=== PATIENT | female | born 1965 | race Caucasian/White ===

== ENCOUNTER → 2024-05-04 07:37 | Outpatient (CLI) | payer OTHER, SELFPAY ==
--- NOTE | 2024-05-04 07:41 | DI.US.S_ITS ---
PROCEDURE: US PERIPH VENOUS UP EXTREM FELIPE INDICATIONS: LOCALIZED SWELLING LOWER EXTREMITIES BILATERAL TECHNIQUE: Real-time imaging, as well as color and pulse Doppler interrogation, was performed of both upper extremity deep veins from the inferior neck to the antecubital fossa. COMPARISON: None. FINDINGS: Right: The internal jugular veins, visualized portions of the subclavian veins, axillary veins, and brachial veins are free of intraluminal thrombus. Where physically possible, the veins are normally compressible. Color and pulse Doppler demonstrate normal intraluminal flow, with expected phasicity and pulsatility. Additional scanning of the cephalic and basilic veins of the superficial system demonstrates normal compressibility, without thrombus. Left: The internal jugular veins, visualized portions of the subclavian veins, axillary veins, and brachial veins are free of intraluminal thrombus. Where physically possible, the veins are normally compressible. Color and pulse Doppler demonstrate normal intraluminal flow, with expected phasicity and pulsatility. Additional scanning of the cephalic and basilic veins of the superficial system demonstrates normal compressibility, without thrombus. Note is made of incompetent venous valves within both the right greater saphenous vein and the left greater saphenous vein, with Valsalva maneuver. IMPRESSION: No findings of deep venous thrombosis can be seen within either upper extremity. Dictated by: Gutierrez Tee M.D. on 05/04/2024 at 9:30 Approved by: Gutierrez Tee M.D. on 05/04/2024 at 9:31
== END ==
LOC: US 07:39
PROVIDERS: PCP Registered Nurse; Referring Provider Registered Nurse; Visit Provider Registered Nurse
DX: R22.41 Localized swelling, mass and lump, right lower limb (principal); R22.42 Localized swelling, mass and lump, left lower limb
CPT/HCPCS: 93970

== ENCOUNTER → 2024-05-23 13:53 | Outpatient (CLI) | payer OTHER, SELFPAY | LOC: WC 13:53 | PROVIDERS: PCP Registered Nurse; Referring Provider Registered Nurse; Visit Provider Surgery | DX: L97.812 Non-pressure chronic ulcer of other part of right lower leg with fat layer exposed (principal); L97.822 Non-pressure chronic ulcer of other part of left lower leg with fat layer exposed; I87.2 Venous insufficiency (chronic) (peripheral); R60.0 Localized edema; L53.9 Erythematous condition, unspecified | CPT/HCPCS: 97602; 99203 ==

== ENCOUNTER → 2024-05-30 13:01 | Outpatient (CLI) | payer OTHER, SELFPAY ==
--- NOTE | 2024-05-30 13:02 | DI.US.S_ITS ---
PROCEDURE: US ABDOMEN LIMITED INDICATIONS: ELEV ALKALINE PHOSPHATASE LEVEL TECHNIQUE: Real-time scanning was performed of the abdominal and retroperitoneal organs, with image documentation. COMPARISON: None. FINDINGS: Liver: Liver is normal in size but heterogeneous in echotexture with multiple solid-appearing nodule seen within both hepatic lobes. These include 3 separate nodules ranging from 3.1 cm to 5.6 cm within the left hepatic lobe and 1.7 to 7.5 cm within the right hepatic lobe. Gallbladder: No gallstones. No wall thickening. No pericholecystic edema. Negative sonographic Pope's sign. Biliary ducts: Intrahepatic bile ducts are non-dilated. Extrahepatic bile duct caliber measures 3.8-4.0 mm. Normal is 6-7 mm or less in diameter, or 10 mm or less post-cholecystectomy. Pancreas: Visualized portions of the pancreas are sonographically normal. Miscellaneous: No free abdominal fluid. IMPRESSION: Multiple solid hepatic mass lesions are identified, within each hepatic lobe, moderate and large in size. Presumed metastatic disease. Contrast-enhanced CT scanning of the chest abdomen and pelvis appears warranted for staging purposes. Dictated by: Konstantin Sy M.D. on 05/31/2024 at 6:43 Approved by: Konstantin Sy M.D. on 05/31/2024 at 6:46
== END ==
PROVIDERS: PCP Registered Nurse; Referring Provider Registered Nurse; Visit Provider Registered Nurse
DX: K76.9 Liver disease, unspecified (principal); R74.8 Abnormal levels of other serum enzymes; R74.01 Elevation of levels of liver transaminase levels
CPT/HCPCS: 76705

== ENCOUNTER → 2024-05-30 14:41 | Outpatient (CLI) | payer OTHER, SELFPAY | PROVIDERS: PCP Registered Nurse; Referring Provider Registered Nurse; Visit Provider Surgery | DX: I87.313 Chronic venous hypertension (idiopathic) with ulcer of bilateral lower extremity (principal); I87.2 Venous insufficiency (chronic) (peripheral); L97.812 Non-pressure chronic ulcer of other part of right lower leg with fat layer exposed; L97.822 Non-pressure chronic ulcer of other part of left lower leg with fat layer exposed; L53.8 Other specified erythematous conditions; L98.8 Other specified disorders of the skin and subcutaneous tissue; R60.0 Localized edema | CPT/HCPCS: 99213 ==

== ENCOUNTER → 2024-06-02 15:09 | Outpatient (CLI) | payer OTHER, SELFPAY ==
[2024-06-02 15:39] LABS: Estimated Glomerular Filt Rate > 60 mL/min (>60)
== END ==
PROVIDERS: PCP Registered Nurse; Referring Provider Radiology Diagnostic Radiology; Visit Provider Radiology Diagnostic Radiology
DX: R74.8 Abnormal levels of other serum enzymes (principal)
CPT/HCPCS: 36415; 82565

== ENCOUNTER → 2024-06-03 08:21 | Outpatient (CLI) | payer OTHER, SELFPAY ==
--- NOTE | 2024-06-03 08:22 | DI.CT.S_ITS ---
PROCEDURE: CT CHEST ABD PEL W CON INDICATIONS: ELEV AP LEVEL,LIVER MASSES,ELEV ALT MEASURE TECHNIQUE: After the administration of intravenous contrast, 5 mm thick sections acquired from the lung apices to the symphysis. 5 mm coronal and sagittal reformats were performed, with additional 7 mm MIP reformats through the lungs. For radiation dose reduction, the following was used: automated exposure control, adjustment of mA and/or kV according to patient size. COMPARISON: [facility], US, US ABDOMEN LIMITED, 05/30/2024, 13:36. FINDINGS: Image quality: Excellent. CHEST: Lower Neck: No enlarged lymph nodes. Thyroid: No thyroid nodules which require sonographic follow up, per consensus guidelines. Axillae: No enlarged lymph nodes. Chest Wall: Left lateral chest wall calcified mass measuring 2.6 cm, (2/38). This could be benign. Lungs and Pleura: No pneumothorax or pleural effusions. No acute airspace opacity. A few areas of distal mucus airway plugging. Central airways are clear. A few small pulmonary nodules. For example: -Right upper lobe measuring 0.5 cm, (5/106). -Right major fissure pulmonary nodule measuring 0.6 cm, (5/113). Heart: Heart size is normal. No pericardial effusion. Thoracic Vessels: The aorta and pulmonary arteries demonstrate normal size. Mediastinum and Elisha: No enlarged lymph nodes. Esophagus: No wall thickening. No hiatal hernia. ABDOMEN: Liver: Multiple (at least 6) hepatic masses. For example: -Inferior right segment 6 measuring 7.5 x 6.8 cm, (2/73). -Segment 2/4 measuring 4.4 x 2.9 cm, (2/47). Gallbladder: No radiopaque gallstones or wall thickening. Biliary ducts: No biliary dilation. Pancreas: No ductal dilation. Spleen: Size is within normal limits. Adrenal Glands: No adrenal nodules. Kidneys and Ureters: No hydronephrosis. No solid mass. No complex renal cystic lesion which requires follow up. Stomach and Bowel: No obvious colonic mass. Normal appendix. No small bowel obstruction. Stomach is within normal limits. Peritoneum: No abnormal intraperitoneal fluid. No free air. Ventral Wall: No significant ventral hernia. Abdominal Nodes: No retroperitoneal or mesenteric adenopathy by size criteria. Vessels: Aorta and inferior vena cava are normal in size. PELVIS: Pelvic Organs: Anteverted uterus. There is a mass within the uterus measuring 4.6 x 4 cm, (4/45). Small left ovarian cyst measuring 1.5 cm, (2/99). Bladder: No bladder wall thickening, accounting for underdistention. Pelvic Nodes: No enlarged lymph nodes. Miscellaneous: No inguinal hernias are seen. Right subcutaneus buttocks nodule measuring 1.5 x 1.3 cm, (2/88). Left length subcutaneous nodule measuring 0.6 cm, (2/72). Bones: Sclerotic lesion in the left ilium, (2/102). IMPRESSION: 1. Multiple hepatic masses consistent with metastatic disease. Largest at the inferior right lobe measuring 7.5 cm. Primary diagnostic considerations include breast cancer and colon cancer. -Recommend ultrasound-guided biopsy. 2. Sclerotic osseous lesion in the left ilium. Suspect metastatic disease. 3. Small nodule at the subcutaneous right buttocks. Indeterminate. Calcified mass at the left lateral chest wall measuring 2.6 cm which could be benign. 4. Mass within the uterus measuring 4.6 cm. This could represent a uterine fibroid. Lower suspicion for malignancy. This could be further evaluated pelvic ultrasound. 5. Several small pulmonary nodules. Indeterminate for metastatic disease. Right major fissure nodule measuring 0.6 cm. PET/CT could also be considered for further evaluation. Dictated by: Sav Brunson M.D. on 06/04/2024 at 18:41 Approved by: Sav Brunson M.D. on 06/04/2024 at 19:11
== END ==
LOC: CT 08:21
PROVIDERS: PCP Registered Nurse; Referring Provider Internal Medicine; Visit Provider Internal Medicine
DX: M89.9 Disorder of bone, unspecified (principal); R91.8 Other nonspecific abnormal finding of lung field; N85.9 Noninflammatory disorder of uterus, unspecified; R16.0 Hepatomegaly, not elsewhere classified; R74.8 Abnormal levels of other serum enzymes; R74.01 Elevation of levels of liver transaminase levels; L98.9 Disorder of the skin and subcutaneous tissue, unspecified
CPT/HCPCS: 71260; 74177; Q9967

== ENCOUNTER → 2024-06-06 09:00 | Outpatient (CLI) | payer OTHER, SELFPAY | PROVIDERS: PCP Registered Nurse; Referring Provider Registered Nurse; Visit Provider Surgery | DX: L97.812 Non-pressure chronic ulcer of other part of right lower leg with fat layer exposed (principal); L97.822 Non-pressure chronic ulcer of other part of left lower leg with fat layer exposed; I87.2 Venous insufficiency (chronic) (peripheral); R60.0 Localized edema; L53.9 Erythematous condition, unspecified | CPT/HCPCS: 99213; 99214 ==

== ENCOUNTER → 2024-06-16 12:39 | Outpatient (CLI) | payer OTHER, SELFPAY ==
[2024-06-16 12:55] LABS: Add Manual Diff / Slide Review NO; Basophils Absolute Auto 0 /uL (0-100); Basophils Percent Auto 0.3 % (0-2); Eosinophils Absolute Auto 100 /uL (0-450); Eosinophils Percent Auto 2.9 % (2-4); Hematocrit 40.6 % (36-46); Hemoglobin 13.6 g/dL (12.0-16.0); Lymphocytes Absolute Auto 800 /uL (1100-4500); Lymphocytes Percent Auto 18.6 % (25-40); Mean Corpuscular HGB Conc 33.6 % (30-36); Mean Corpuscular Volume 89.1 fL (80-100); Monocytes Absolute Auto 500 /uL (0-900); Monocytes Percent Auto 11.8 % (3-14); Neutrophils Absolute Auto 3000 /uL (1500-7000); Neutrophils Percent Auto 66.4 % (50-75); Platelet Count 265 X10^3/uL (150-400); Red Blood Cell Count 4.56 X10^6/uL (4.0-5.2); Red Cell Distribution Width 14.6 % (11.6-14.8); White Blood Cell Count 4.5 X10^3/uL (4.5-11.0)
[2024-06-16 13:04] LABS: Prothrombin Time 11.9 SECONDS (9.4-12.5)
[2024-06-16 13:06] LABS: PTT Partial Thromboplastin Tim 32 SECONDS (25.1-36.5)
== END ==
PROVIDERS: PCP Registered Nurse; Referring Provider Radiology Vascular & Interventional Radiology; Visit Provider Radiology Vascular & Interventional Radiology
DX: K76.89 Other specified diseases of liver (principal)
CPT/HCPCS: 36415; 85025; 85610; 85730

== ENCOUNTER 2024-06-19 07:43 | Outpatient (CLI) | payer OTHER, SELFPAY ==
[2024-06-19] VITALS (14 sets, daily range): BP systolic 147–212; BP diastolic 59–102; PULSE 92–108; RESP 9–21; TEMP 36.3; O2SAT 92–100
--- NOTE | 2024-06-19 | PATH_ITS ---
[facility] Accession Number: [id number] No. of containers..01 Tissue . 01 Material submitted: . liver - INFERIOR RIGHT LOBE LIVER . 01 Clinical history: . LIVER MASS . 01 Diagnosis: INFERIOR RIGHT LOBE OF LIVER, NEEDLE CORE BIOPSY: Consistent with metastatic melanoma. See comment. [facility] 06/26/2024 1626 Local . 01 Comment: Clinical correlation is recommended. As part of ongoing personnel quality assurance auditor, this case is also reviewed by Dr. Fito Do and Dr. Iman Villavicencio, who agree with the interpretation. Findings were called to on 06/26/24 at 1630 hours by . . 01 Electronically signed: . Elisa Cheng MD, Pathologist NPI- [id number] . 01 Gross description: . Received in formalin with two patient identifiers and no site on jar, are five benz to brown needle cores, 0.6 to 1.5 cm in length, submitted entirely in A1. ([id number]) /[facility] 06/20/2024 1510 Local . 01 Microscopic: . Microscopic examination is remarkable for a malignant tumor composed of epithelioid to spindled cells and showing a sheet like and trabecular pattern of proliferation. The malignant cells have abundant cytoplasm. Pigment deposition is noted. An extensive panel of immunostains are performed. The lesional malignant cells are positive for HMB45, SOX-10, Melan-A, and S100. The tumor cells are negative for BRISEIDA, arginase 1, HepPar1, glypican 1, smooth muscle actin, desmin, and CD117, arguing against carcinoma, including hepatocellular carcinoma, a smooth muscle lesion, GIST and a pecoma-like tumor. All controls stain appropriately. . * This test was developed and its performance characteristics determined by [employer]. It has not been cleared or approved by the U.S. Food and Drug Administration. The FDA has determined that such clearance or approval is not necessary. This test is used for clinical purposes. It should not be regarded as investigational or for research. . 01 Pathologist provided ICD-10: C78.7 . 01 CPT . 685709, W09625, A77295 Specimen Comment: A courtesy copy of this report has been sent to [phone] Performed at: [address] [id number] MD Joshua Sumner MD Phone: [phone]
--- NOTE | 2024-06-19 | DI.CT.S_ITS ---
CLINICAL HISTORY: 58-year-old woman with multiple liver masses PROCEDURE: CT GUIDED LIVER MASS BIOPSY PHYSICIAN: Pa Hathaway M.D. SEDATION: Conscious sedation was performed by the nursing staff under the supervision of the physician with continuous hemodynamic monitoring. Medications: Versed 2 mg; Fentanyl 100 mcg; sedation time 30 min DOSE: DLP: 396 mGycm CONTRAST: none FINDINGS: After the risks, benefits and alternatives were explained, informed consent was obtained from the patient and/or family members. The patient was prepped and draped in sterile fashion. Local anesthesia administered with 1% lidocaine. Under CT guidance, a 17 gauge needle cannula was advanced in stepwise fashion into the large mass within the inferior right hepatic lobe. CT was performed confirming needle position within the targeted lesion. Next, a coaxial 18 gauge core biopsy needle was advanced through the needle cannula and 4 core biopsies were obtained. Specimens were sent to pathology for evaluation. The needle was removed. Patient tolerated the procedure well. No immediate complications noted. IMPRESSION: CT guided right hepatic lobe mass biopsy as described. Dictated by: Pa Hathaway M.D. on 06/19/2024 at 16:39 Approved by: Pa Hathaway M.D. on 06/19/2024 at 16:40
[2024-06-19] MEDS: MIDAZOLAM 5 MG/ML VIAL 1 MG IV ×2 (08:58→09:09)
[2024-06-19] MEDS: fentaNYL 100 MCG/2 ML INJ 50 MCG IV ×2 (08:58→09:09)
[2024-06-19] MEDS: LIDOCAINE 1% 20 ML INJ (09:05)
[2024-06-19] MEDS: HYDRALAZINE 20 MG/ML VIAL 10 MG IV (09:17)
--- NOTE | 2024-06-19 09:30 | PC.NURSE ---
No orthostatic BP and pulses needed per Dr. Hathaway pre or post procedure.
--- NOTE | 2024-06-19 10:12 | PC.NURSE ---
See Vital signs for post op vital signs.
--- NOTE | 2024-06-19 10:31 | PM.PROC.IR.1 ---
Date/Time/Diagnoses Date of procedure: 06/19/24 Time of procedure: 09:30 Pre-procedure diagnosis: Liver masses Post-procedure diagnosis: same Procedure Notes Procedure: CT guided Liver Mass Biopsy Indications: Liver masses Physician: Pa Hathaway Total sedation minutes: 30 Complications: none Procedure in detail & Post-procedure care: Four 18 gauge core biopsies of large inferior right hepatic lobe mass.
--- NOTE | 2024-06-19 10:44 | PC.NURSE ---
Dr. Hathaway notified at 1020 that the patient is not having any pain, her dressing is intact and dry, and her VS are stable. He was also notified that the patient's BP resonded well to the hydralazine 10mg IV. Patient's systolic pressures were in the 140's and 150's.
== END 2024-06-19 10:31 | disposition home or self-care (01) ==
LOC: CT 07:44
PROVIDERS: PCP Registered Nurse; Referring Provider Registered Nurse; Visit Provider Registered Nurse
DX: R16.0 Hepatomegaly, not elsewhere classified (principal); K76.89 Other specified diseases of liver
CPT/HCPCS: 47000; 77012; 99152; J0360; J2250; J3010

== ENCOUNTER → 2024-06-27 10:34 | Outpatient (CLI) | payer OTHER, SELFPAY | LOC: WC 10:35 | PROVIDERS: PCP Registered Nurse; Referring Provider Registered Nurse; Visit Provider Surgery | DX: L97.812 Non-pressure chronic ulcer of other part of right lower leg with fat layer exposed (principal); I87.2 Venous insufficiency (chronic) (peripheral); R60.0 Localized edema; L97.822 Non-pressure chronic ulcer of other part of left lower leg with fat layer exposed | CPT/HCPCS: 97602; 99213 ==

== ENCOUNTER → 2024-07-04 15:48 | Outpatient (CLI) | payer OTHER, SELFPAY | LOC: WC 15:49 | PROVIDERS: PCP Registered Nurse; Referring Provider Registered Nurse; Visit Provider Surgery | DX: L97.812 Non-pressure chronic ulcer of other part of right lower leg with fat layer exposed (principal); I87.2 Venous insufficiency (chronic) (peripheral); R60.0 Localized edema | CPT/HCPCS: 99213 ==

== ENCOUNTER → 2024-07-18 14:52 | Outpatient (CLI) | payer OTHER, SELFPAY | LOC: WC 14:53 | PROVIDERS: PCP Registered Nurse; Referring Provider Registered Nurse; Visit Provider Surgery | DX: R60.0 Localized edema (principal); I87.2 Venous insufficiency (chronic) (peripheral) | CPT/HCPCS: 99213 ==

== ENCOUNTER → 2024-07-31 09:27 | Outpatient (CLI) | payer OTHER, SELFPAY ==
--- NOTE | 2024-07-31 09:28 | DI.US.S_ITS ---
PROCEDURE: US VENOUS INSUFFICIENCY BILAT INDICATIONS: Venous ulcers of bilateral lower extremities. TECHNIQUE: Real time scanning was performed of the lower extremity venous system, with imaging documentation, as well as Color and pulse Doppler interrogation. COMPARISON: None. FINDINGS: RIGHT LOWER EXTREMITY: The deep veins are normally compressible, and free of intraluminal thrombus. Color and pulse Doppler demonstrate normal intravascular flow. There is normal augmentation with distal compression maneuver. Reflux is seen involving the common femoral vein with reflux time 5.2 seconds. Remainder of the deep venous system of the right lower extremity without insufficiency. Greater saphenous vein (GSV): Normally 4 mm or less in diameter, with any reflux less than 0.5 seconds. Saphenofemoral junction (SFJ): 8 mm. Reflux time of 2.9 sec. Proximal GSV: 3 mm. No reflux. Mid GSV: 6 mm. Reflux time 2.6 sec. Distal GSV: 7 mm. Reflux time 2.6 sec. Calf GSV: 7 mm, and reflux time 1 sec. Anterior accessory GSV (AAGSV): Dilated measuring upwards of 13 mm in the upper thigh with reflux time of 3.9 seconds at this level. Anterior accessory GSV is also dilated measuring 7 mm in the mid thigh with reflux time 2.0 seconds and joins of the GSV in the lower thigh. Small saphenous vein (SSV): Posterior calf, draining into popliteal vein. Posterior calf: 3 mm. No reflux. Vein of Giacomini (posterior thigh connection between GSV and SSV): Anatomic variant not seen. LEFT LOWER EXTREMITY: The deep veins are normally compressible, and free of intraluminal thrombus. Color and pulse Doppler demonstrate normal intravascular flow. There is normal augmentation with distal compression maneuver. Reflux is seen involving the common femoral vein with reflux time 2.9 seconds. Remainder of the deep venous system of the left lower extremity without insufficiency. Greater saphenous vein (GSV): Normally 4 mm or less in diameter, with any reflux less than 0.5 seconds. Saphenofemoral junction (SFJ): 13 mm. Reflux time 2.4 seconds. Proximal GSV: 9 mm. No reflux. Mid GSV: 8 mm. Reflux time 1.3 seconds. Distal GSV: 7 mm. Reflux time 1.3 seconds. Calf GSV: 9 mm. Reflux time 2.6 seconds. Anterior accessory GSV (AAGSV): Anatomic variant across anterior thigh without insufficiency Small saphenous vein (SSV): Posterior calf, draining into popliteal vein. Posterior calf: 3 mm. No reflux. Vein of Giacomini (posterior thigh connection between GSV and SSV): Anatomic variant not seen. IMPRESSION: 1. Right GSV and anterior accessory GSV venous insufficiency seen in association with large varicose veins within the medial right calf. 2. Left GSV venous insufficiency associated with varicose veins within the medial left calf. Dictated by: Pa Hathaway M.D. on 07/31/2024 at 13:05 Approved by: Pa Hathaway M.D. on 07/31/2024 at 13:22
== END ==
PROVIDERS: PCP Registered Nurse; Referring Provider Surgery; Visit Provider Surgery
DX: I87.313 Chronic venous hypertension (idiopathic) with ulcer of bilateral lower extremity (principal); L97.812 Non-pressure chronic ulcer of other part of right lower leg with fat layer exposed; L97.822 Non-pressure chronic ulcer of other part of left lower leg with fat layer exposed
CPT/HCPCS: 93970

== ENCOUNTER → 2025-01-19 10:08 | Outpatient (CLI) | payer OTHER, SELFPAY ==
--- NOTE | 2025-01-19 10:11 | DI.RAD.S_ITS ---
PROCEDURE: XR HAND RT MIN 3V INDICATIONS: PAIN TECHNIQUE: 3 views of the hand(s) acquired. COMPARISON: None. FINDINGS: Bones: No fractures or dislocations. Carpal bones are normally aligned. Mild osteoarthritic changes throughout right hand and wrist joints. No gross bony erosive changes. No suspicious bony lesions. Soft tissues: No suspicious soft tissue calcifications. IMPRESSION: No acute right hand fracture or dislocation. 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 No gross bony erosive changes. Dictated by: Brandon Garcia M.D. on 01/19/2025 at 14:02 Approved by: Brandon Garcia M.D. on 01/19/2025 at 14:03
--- NOTE | 2025-01-19 10:12 | DI.RAD.S_ITS ---
PROCEDURE: XR SHOULDER RT MIN 2V INDICATIONS: PAIN TECHNIQUE: 4 views of the shoulder were acquired. COMPARISON: None. FINDINGS: Bones: No fractures or dislocations. Mild acromioclavicular joint and glenohumeral joint osteoarthritic changes are seen. No suspicious bony lesions. Visualized ribs appear intact. Soft tissues: No suspicious soft tissue calcifications. Right chest wall Port-A-Cath tip is in SVC. IMPRESSION: Mild right shoulder joint osteoarthritis. No acute fracture or dislocation. No gross soft tissue abnormalities. Dictated by: Brandon Garcia M.D. on 01/19/2025 at 14:03 Approved by: Brandon Garcia M.D. on 01/19/2025 at 14:04
== END ==
PROVIDERS: PCP Family Medicine; Referring Provider Family Medicine; Visit Provider Family Medicine
DX: S69.91XA Unspecified injury of right wrist, hand and finger(s), initial encounter (principal); M19.041 Primary osteoarthritis, right hand; M19.031 Primary osteoarthritis, right wrist; M19.011 Primary osteoarthritis, right shoulder; M25.511 Pain in right shoulder; G89.29 Other chronic pain
CPT/HCPCS: 73030; 73130

== ENCOUNTER → 2025-02-02 10:26 | Outpatient (CLI) | payer OTHER, SELFPAY ==
--- NOTE | 2025-02-02 10:27 | DI.MRI.S_ITS ---
PROCEDURE: MR CERVICAL SPINE WO CON INDICATIONS: ABN REFLEX,RADICULAR PAIN UPPER EXTREMITY TECHNIQUE: Noncontrast sagittal T1 spin echo and T2 fast spin echo, sagittal STIR, foraminal oblique sagittal T2 fast spin echo, and axial gradient echo or T2 fast spin echo through the cervical spine. COMPARISON: None. FINDINGS: Image quality: Diagnostic Alignment and Curvature: Slight reversal of the normal cervical lordosis. No traumatic subluxation Bone Marrow: No acute fracture Spinal Cord: No significant cord signal abnormality Paraspinous Soft Tissues: No paraspinal fluid collection identified. No pathologic prevertebral soft tissue swelling. C2-C3: Uncovertebral and facet arthropathy is mild. Small posterior disc osteophyte complex. Mild central narrowing. Mild left neural foraminal narrowing. C3-C4: Small posterior disc osteophyte complex. Mild bilateral facet and uncovertebral arthropathy. Mild central and right neural foraminal narrowing. C4-C5: Moderate posterior disc osteophyte complex. Mild hypertrophy of the ligamentum flavum. Moderate overall central narrowing. Bilateral facet and uncovertebral arthropathy. Amkc-ib-rybjbzwl right and moderate left neural foraminal narrowing. C5-C6: Moderate posterior disc osteophyte complex and diffuse bulge. Moderate central narrowing. Uncovertebral and facet arthropathy. Moderate bilateral neural foraminal narrowing. C6-C7: Moderate posterior disc osteophyte complex. Mild ligamentum hypertrophy. Bilateral facet and uncovertebral arthropathy. [id number]-fiirnbfd central narrowing. Moderate right and [id number]-[id number] left neural foraminal narrowing. C7-T1: Mild posterior disc osteophyte complex. Uncovertebral and facet arthropathy. Wnui-bz-[id number] right and left neural foraminal narrowing. Mild central narrowing. IMPRESSION: Spondylotic changes as described above, overall moderate involvement from C4-C7. No acute fracture. There is slight reversal of the normal cervical lordosis. No traumatic subluxation. Dictated by: Nakul Bauer M.D. on 02/03/2025 at 6:36 Approved by: Nakul Bauer M.D. on 02/03/2025 at 6:41
== END ==
PROVIDERS: PCP Family Medicine; Referring Provider Registered Nurse; Visit Provider Registered Nurse
DX: M47.812 Spondylosis without myelopathy or radiculopathy, cervical region (principal); M54.10 Radiculopathy, site unspecified; R29.2 Abnormal reflex
CPT/HCPCS: 72141